=== PATIENT | male | born 1950 | race Caucasian/White ===

== ENCOUNTER 2023-01-28 22:49 | Emergency (ER) | payer BC, MEDICARE ==
[~2023-01-28] VITALS: Ht 165.1 cm; Wt 78.9 kg
[2023-01-28] MEDS ORDERED: CLOP75TA33 PO (23:23)
[2023-01-28] MEDS ORDERED: IPRA12.9 INH (23:23)
[2023-01-28] MEDS ORDERED: BENZ200C53 PO (23:23)
[2023-01-28] MEDS ORDERED: LOSA100T31 PO (23:23)
[2023-01-28] MEDS ORDERED: ROSU40TA23 PO (23:23)
[2023-01-28] MEDS ORDERED: UBID200C36 PO (23:23)
[2023-01-28] MEDS ORDERED: EZET10TA15 PO (23:23)
[2023-01-28] MEDS ORDERED: CHOL4000 PO (23:23)
[2023-01-28] MEDS ORDERED: FLUT9.9S NS (23:23)
[2023-01-28] MEDS ORDERED: ALBU8.5H8 INH (23:23)
[2023-01-28] MEDS ORDERED: AMLO-212 PO (23:23)
[2023-01-28] MEDS ORDERED: PANT40TA49 PO (23:23)
[2023-01-28 23:56] LABS: BASOPHILS # (AUTO) 0.1 K/UL (0.0-0.2); BASOPHILS % (AUTO) 0.6 % (0.0-2.0); EOSINOPHILS # (AUTO) 0.3 K/uL (0.0-0.7); EOSINOPHILS % (AUTO) 3.3 % (0.0-7.0); HEMATOCRIT 41.8 % (36.7-47.1); LYMPHOCYTES # (AUTO) 1.1 K/uL (0.8-4.8); LYMPHOCYTES % (AUTO) 11.7 % (20.5-51.5); MEAN CORPUSCULAR HEMOGLOBIN 32.2 uug (23.8-33.4); MEAN CORPUSCULAR HGB CONC 33 g/dL (32.5-36.3); MEAN CORPUSCULAR VOLUME 96.4 fL (73.0-96.2); MONOCYTES # (AUTO) 0.9 K/uL (0.1-1.30); MONOCYTES % (AUTO) 9.5 % (0.0-11.0); NEUTROPHILS # (AUTO) 7.2 K/uL (1.8-8.9); NEUTROPHILS % (AUTO) 74.9 % (38.5-71.5); PLATELET COUNT (AUTO) 166 K/uL (152-348); RED BLOOD CELL COUNT(AUTO) 4.34 MIL/uL (4.06-5.63); RED CELL DISTRIBUTION WIDTH 12.7 % (12.1-16.2); WHITE BLOOD COUNT (AUTO) 9.7 K/uL (3.6-10.2)
[2023-01-29 00:11] LABS: DIFFERENTIAL COMMENT 1
[2023-01-29 00:16] LABS: ALANINE AMINOTRANSFERASE 41 U/L (16-63); ALBUMIN 3.2 g/dL (3.4-5.0); ALKALINE PHOSPHATASE 53 U/L (50-136); ASPARTATE AMINOTRANSFERASE 21 U/L (15-37); BILIRUBIN,DIRECT 0.1 mg/dL (0.0-0.2); BILIRUBIN,TOTAL 0.6 mg/dL (0.2-1.0); CALCIUM 9.1 mg/dL (8.5-10.1); CARBON DIOXIDE 22 mmol/L (21-32); CHLORIDE 107 mmol/L (98-107); CREATININE 1.6 mg/dL (0.6-1.3); GLUCOSE 81 mg/dL (74-106); POTASSIUM 3.4 mmol/L (3.5-5.1); SODIUM SERUM 143 mmol/L (136-145); TOTAL PROTEIN, SERUM 6.7 g/dL (6.4-8.2); UREA NITROGEN, BLOOD 29 mg/dL (7-18)
[2023-01-29 00:38] LABS: LACTIC ACID 3.4 mmol/L (0.4-2.0)
[2023-01-29] MEDS ORDERED: ASPIRIN 81 MG TAB.CHEW PO ONE (01:00)
[2023-01-29] MEDS ORDERED: ENOXAPARIN SODIUM 80 MG/0.8 ML DISP.SYRIN SQ ONE ×2 (01:00→01:02)
[2023-01-29] MEDS ORDERED: ASPIRIN 81 MG TAB.CHEW ONE (01:01)
[2023-01-29] MEDS ORDERED: levoFLOXacin 750MG/D5W 150 ML IV ONE (01:03)
[2023-01-29 01:19] LABS: *BILIRUBIN,URIN NEGATIVE (NEGATIVE); *CLARITY,URINE CLEAR (CLEAR); *COLOR,URINE YELLOW (YELLOW); *KETONES,URINE TRACE (NEGATIVE); *PROTEIN,URINE 2+ (NEGATIVE); *UROBILINOGEN,URINE 0.2 E.U./dl (NORMAL); LEUKOCYTE ESTERASE ,URINE NEGATIVE (NEGATIVE); NITRITE, URINE NEGATIVE (NEGATIVE); UGLUCOSE NEGATIVE (NEGATIVE)
[2023-01-29 01:20] LABS: *BLOOD, URINE TRACE (NEGATIVE)
[2023-01-29] MEDS ORDERED: POTASSIUM CHLORIDE 20 MEQ TAB.PRT.SR PO ONE (02:45)
[2023-01-29] MEDS ORDERED: POTASSIUM CHLORIDE 20 MEQ TAB.PRT.SR ONE (03:38)
[2023-01-29 04:15] LABS: RBC,URINE 0-3 /HPF (0-3); WBC,URINE 0-3 /HPF (0-3)
[2023-01-29 04:16] LABS: BACTERIA,URINE RARE /HPF (NONE SEEN); SQUAMOUS EPITHELIAL CELL,UR FEW /HPF (NONE SEEN)
[2023-01-29] MEDS ORDERED: ACETAMINOPHEN 325 MG TABLET ONE (04:31)
[2023-01-29 07:15] VITALS: O2SAT 97
[2023-01-30] MEDS ORDERED: ACETAMINOPHEN 325 MG TABLET PO ONE (16:45)
== END 2023-01-29 07:35 | disposition admitted as inpatient to this hospital (09) ==
LOC: ER 22:56
DX: I21.4 Non-ST elevation (NSTEMI) myocardial infarction (principal); R74.02 Elevation of levels of lactic acid dehydrogenase [LDH]; E87.6 Hypokalemia; R94.31 Abnormal electrocardiogram [ECG] [EKG]; R55 Syncope and collapse; I25.10 Atherosclerotic heart disease of native coronary artery without angina pectoris; E78.5 Hyperlipidemia, unspecified; Z20.822 Contact with and (suspected) exposure to COVID-19; J45.909 Unspecified asthma, uncomplicated; K21.9 Gastro-esophageal reflux disease without esophagitis; Z79.899 Other long term (current) drug therapy; Z91.018 Allergy to other foods
CPT/HCPCS: 99291; 80076; 80048; 81001; 83880; 85025; 85730; 84484 ×2; 36415 ×2; 93005; 71045; 83605 ×3; 87426; 96372; J1650; J1956; A4606; A4663